=== PATIENT | male | born 1965 | race Caucasian/White ===

== ENCOUNTER 2023-07-21 12:51 | Emergency (ER) | payer BC, OTHER ==
--- NOTE | 2023-07-21 13:12 | ED Physician Documentation ---
PD HPI ABD PAIN - Stated complaint Stated Complaint: LT SIDE PX - Chief complaint Chief Complaint: Abd Pain - History obtained from History obtained from: Patient - History of Present Illness Timing - onset: How many hours ago (2), Today Timing - duration: Hours Timing - details: Abrupt onset (onset while at work but no injury associated with the onset of symptoms.), Still present Pain level max: 10 Pain level now: 10 Quality: Aching, Other Location: LLQ Radiation: Left flank Improved by: No: Vomiting, Position Worsened by: No: Moving, Breathing, Position Associated symptoms: Nausea, Vomiting. No: Fever, Diarrhea, Constipation, Dysuria, Chest pain Similar symptoms before: Has not had sx before Review of Systems Constitutional: denies: Fever, Chills Nose: denies: Rhinorrhea / runny nose, Congestion Throat: denies: Sore throat Respiratory: denies: Cough PD PAST MEDICAL HISTORY - Past Medical History Past Medical History: No Cardiovascular: Hypertension Respiratory: None Endocrine/Autoimmune: None GI: None - Past Surgical History Past Surgical History: Yes - Present Medications Home Medications: Ambulatory Orders Medication Instructions Recorded Confirmed Ibuprofen [Motrin] 600 mg PO TID PRN #25 tab 07/21/23 Ondansetron Odt [Zofran] 4 mg TL Q6H PRN #10 tablet 07/21/23 Oxycodone HCl/Acetaminophen 1 each PO Q4H PRN #20 tablet 07/21/23 [Percocet 5-325 mg Tablet] Tamsulosin [Flomax] 0.4 mg PO DAILY #5 cap 07/21/23 - Allergies Allergies/Adverse Reactions: Allergies Allergy/AdvReac Type Severity Reaction Status Date / Time bee venom protein (honey bee) Allergy Hives Verified 07/21/23 13:00 - Social History Does the pt smoke?: No Smoking Status: Never smoker Does the pt drink ETOH?: No Does the pt have substance abuse?: No - Immunizations Immunizations are current?: No - POLST Patient has POLST: No PD ED PE NORMAL - Vitals Vital signs reviewed: Yes - General General: Alert and oriented X 3, Well developed/nourished, Other (appears in severe pain but is calm and trying to do focused breathing. ) - Cardiac Cardiac: RRR, No murmur - Respiratory Respiratory: No respiratory distress, Clear bilaterally - Abdomen Abdomen: Normal bowel sounds, Soft, Non tender, Non distended - Derm Derm: Normal color, Warm and dry - Extremities Extremities: No edema, No calf tenderness / cord - Neuro Neuro: Alert and oriented X 3, No motor deficit, No sensory deficit, Normal speech Results - Vitals Vitals: Oxygen O2 Source Room air - Labs Labs: Laboratory Tests 07/21/23 07/21/23 07/21/23 13:06 13:06 15:50 WBC 7.6 RBC 5.25 Hgb 15.7 Hct 45.2 MCV 86.1 MCH 29.9 MCHC 34.7 RDW 11.7 L Plt Count 216 MPV 7.8 Neut # (Auto) 4.1 Lymph # (Auto) 2.8 [place] # (Auto) 0.5 Eos # (Auto) 0.2 Baso # (Auto) 0.0 Absolute Nucleated RBC 0.00 Nucleated RBC % 0.0 Sodium 138 Potassium 3.6 Chloride 100 L Carbon Dioxide 30 Anion Gap 8.0 BUN 19 Creatinine 1.1 Estimated GFR (MDRD) 69 L Glucose 116 H Calcium 9.8 Total Bilirubin 1.2 H AST 27 ALT 35 Alkaline Phosphatase 58 Total Protein 7.6 Albumin 4.8 Globulin 2.8 Albumin/Globulin Ratio 1.7 Lipase 28 Urine Color YELLOW Urine Clarity HAZY Urine pH 7.0 Ur Specific Hines 1.010 Urine Protein NEGATIVE Urine Glucose (UA) NEGATIVE Urine Ketones NEGATIVE Urine Occult Blood MODERATE H Urine Nitrite NEGATIVE Urine Bilirubin NEGATIVE Urine Urobilinogen 0.2 (NORMAL) Ur Leukocyte Esterase NEGATIVE Urine RBC 11-25 H Urine WBC 0-3 Ur Squamous Epith Cells RARE Squamous Urine Bacteria Few Ur Microscopic Review INDICATED Urine Culture Comments NOT INDICATED - Rads (name of study) abd/pelvic CT Relevant Findings:: Prelim report reviewed, EMP independent interpretation of test (3-4 mm stone proximal third left ureter with some mild hydronephrosis. No other stones noted in kidneys. Incidental GB stone without wall thickening nor distension. Aorta appears normal. ) PD Medical Decision Making - ED course Complexity details: re-evaluated patient (pain considerabley improved prior to CT and labs are without significant abnormalities, reviewed by me. UA with some blood but no infection. ), considered differential (acute onset left flank to abd pain with nausea. Severe pain. Not changed with movement. No injury. Consider kidney stone. No history of them. Also concern for vascular such as aortic in mid-aged male with HTN. I feel CT warranted and pt in agreement. Initial focus on pain meds though. ), d/w patient Reviewed Lab Results: CT abd/pelvis showing 3-4 mm stone proximal third of ureter with mild/mod hydronephrosis. No other acute process. gallstones without GB inflammation and he does not have pain in that area. Pt told of the presence of the gallstones as well as the pain-cuasing kidney stone. Departure - Departure Disposition: 01 Home, Self Care Clinical Impression: Abdominal pain, Acute flank pain, Ureterolithiasis Condition: Stable Record reviewed to determine appropriate education?: Yes Instructions: ED Stone Renal W Colic Prescriptions: Tamsulosin [Flomax] 0.4 mg PO DAILY #5 cap Ibuprofen [Motrin] 600 mg PO TID PRN #25 tab PRN Reason: Pain Oxycodone HCl/Acetaminophen [Percocet 5-325 mg Tablet] 1 each PO Q4H PRN #20 tablet PRN Reason: pain Ondansetron Odt [Zofran] 4 mg TL Q6H PRN #10 tablet PRN Reason: Nausea / Vomiting Comments: Your CT scan shows a 3 to 4 mm stone in the left ureter. This is what is causing your pain and also back pressure into the kidney to cause swelling there and pain in the back. The stone of this size should pass on its own over the short-term of within the next few days. Sometimes it does take longer. At this point would have you stay well-hydrated. There is no reason to over hydrate per se but just normal hydration. We typically treat with a combination of anti-inflammatories such as ibuprofen or naproxen regularly. I prescribed ibuprofen 600 mg to take 3 times daily with food for the next several days to week. Ondansetron/Zofran if needed for nausea. Tamsulosin is used over the next 3 to 5 days to help with ureteral spasms and promote passage of the stone. It also decreases spasm type pains even after the stone passes. It does not need to be taking longer term. To this add Tylenol 500 to 650 mg every 4-6 hours if needed for pain or the oxycodone/acetaminophen if needed for worse pain. The good majority of stones of this size will pass over the next 2 to 3 days or sooner. Follow-up with your primary care if not resolved completely over the next several days. Return to an ER if worsening symptoms despite the prescription medicines. You could get a referral to urologist from your primary care if the symptoms are controlled well enough but it does not seem to have passed over the next several days to week. I sent your prescriptions already to the [facility] in [place]. On your blood test your blood count white count are good. Your electrolytes are normal as is your kidney function. Your blood sugar was minimally elevated at 116 but being on fasting blood sugar is actually pretty good. I am prescribing a short course of narcotic pain medication for you. These are potentially dangerous and addictive medications that should be used carefully. These medications may constipate you. Take an [id number] stool softener such as docusate twice daily with plenty of water while taking these medications. If you go 24 hours without a bowel movement, take [id number] MiraLAX, per package instructions. Do not drink or drive while taking these medications. If you received narcotic or sedating medications while in the emergency department do not drive for 24 hours. Store this medication in a safe, secure place and out of reach of children. It is a violation of federal law to give or sell this medication to another person or to use in a manner other than prescribed. The ED will not refill narcotic prescriptions, including prescriptions lost or stolen. You can dispose of unwanted medications at the [facility]'s office or at several pharmacies such as [facility]. Forms: PCP List Discharge Date/Time: 07/21/23 15:50
[2023-07-21 13:16] LABS: BASOPHILS % (AUTO) 0.5 %; EOSINOPHILS # (AUTO) 0.2 10^3/uL (0.0-0.7); EOSINOPHILS % (AUTO) 2.3 %; HCT - HEMATOCRIT 45.2 % (42.0-52.0); HGB - HEMOGLOBIN 15.7 g/dL (14.0-18.0); LYMPHOCYTES # (AUTO) 2.8 10^3/uL (1.5-3.5); MEAN CORPUSCULAR HEMOGLOBIN 29.9 pg (27.0-31.0); MEAN CORPUSCULAR HGB CONC 34.7 g/dL (32.0-36.0); MEAN CORPUSCULAR VOLUME 86.1 fL (80.0-94.0); MEAN PLATELET VOLUME 7.8 fL (7.4-11.4); MONOCYTES # (AUTO) 0.5 10^3/uL (0.0-1.0); MONOCYTES % (AUTO) 6.5 %; NEUTROPHILS # (AUTO) 4.1 10^3/uL (1.5-6.6); NEUTROPHILS % (AUTO) 53.6 %; PLT - PLATELET COUNT 216 10^3/uL (130-450); RED BLOOD COUNT 5.25 10^6/uL (4.70-6.10); RED CELL DISTRIBUTION WIDTH 11.7 % (12.0-15.0); WHITE BLOOD COUNT 7.6 x10^3/uL (4.8-10.8)
[2023-07-21] MEDS ORDERED: KETOROLAC 15 MG/ML VIAL IVP STA (13:21)
[2023-07-21] MEDS ORDERED: HYDROmorphone 1 MG/ML CARPUJECT IVP STA ×2 (13:21→14:49)
[2023-07-21] MEDS ORDERED: SODIUM CHLORIDE 0.9% 1,000 ML IV STA (13:21)
[2023-07-21] MEDS ORDERED: ONDANSETRON 4 MG/2 ML VIAL IVP STA (13:21)
[2023-07-21 13:31] LABS: ALBUMIN 4.8 g/dL (3.2-5.5); ALBUMIN/GLOBULIN RATIO 1.7 (1.0-2.2); BILIRUBIN,TOTAL 1.2 mg/dL (0.2-1.0); CALCIUM 9.8 mg/dL (8.5-10.3); CREATININE 1.1 mg/dL (0.6-1.3); POTASSIUM 3.6 mmol/L (3.5-4.5); TOTAL PROTEIN 7.6 g/dL (6.4-8.9)
[2023-07-21] MEDS ORDERED: iohexoL-300 100 ML VIAL IVP ONE (14:43)
[2023-07-21] MEDS ORDERED: LIDOCAINE-MPF 2% 8 ML in SODIUM CHLORIDE 0.9% 50 ML IV STA (14:49)
--- NOTE | 2023-07-21 15:05 | CT Report ---
PROCEDURE: ABDOMEN/PELVIS W INDICATIONS: left flank pain abrupt today CONTRAST: 100ml omni 300 TECHNIQUE: After the administration of intravenous contrast, 5 mm thick sections acquired from the diaphragms to the symphysis. 5 mm thick coronal and sagittal reformats were acquired. For radiation dose reducti on, the following was used: automated exposure control, adjustment of mA and/or kV according to mahad ent size. COMPARISON: None FINDINGS: Image quality: Excellent. Lung bases and heart: Unremarkable. Liver: No solid mass. Gallbladder and biliary tree: Cholelithiasis without wall thickening. No biliary dilation. Spleen: No splenomegaly. Pancreas: No pancreatic ductal dilation. Adrenals: No adrenal nodule. Kidneys and ureters: Obstructing 3 mm stone in the proximal left ureter (series 2, image 59). Mildly delayed left-sided nephrogram. Minimal left-sided hydronephrosis. Bowel and peritoneum: No bowel distension. No pathologic free fluid. Lymph nodes: No central or retroperitoneal adenopathy. Vessels: No infrarenal aortic aneurysm. PELVIS Reproductive organs: Unremarkable. Bladder: No abnormal wall thickening, accounting for underdistension. Pelvic lymph nodes: No pelvic adenopathy by size criteria. Bones: No aggressive osseous abnormality. Other: Small left inguinal hernia containing fat. Trace right inguinal hernia containing fat. IMPRESSION: Obstructing 3 mm stone in the proximal left ureter, resulting in mildly delayed left-sided nephrogram and minimal hydronephrosis. Small left and trace right inguinal hernias containing fat. Reviewed by: Bentley Henry on 07/21/2023 2:03 PM [facility] Approved by: Bentley Henry on 07/21/2023 2:03 PM [facility] Station ID: [id number]
[2023-07-21 15:43] VITALS: BP 154/88; O2SAT 97
[2023-07-21 16:04] LABS: BILIRUBIN,URINE NEGATIVE (NEGATIVE); GLUCOSE, URINE (UA) NEGATIVE (NEGATIVE); KETONES,URINE (UA) NEGATIVE (NEGATIVE); LEUKOCYTE ESTERASE, URINE NEGATIVE (NEGATIVE); NITRITE,URINE NEGATIVE (NEGATIVE); OCCULT BLOOD,URINE MODERATE (NEGATIVE); PROTEIN,URINE NEGATIVE (NEGATIVE); UROBILINOGEN,URINE 0.2 (NORMAL) E.U./dL (NORMAL)
[2023-07-21 16:06] LABS: CLARITY,URINE HAZY (CLEAR)
[2023-07-21 16:12] LABS: BACTERIA,URINE Few /HPF (None Seen); SQUAMOUS EPITHELIAL CELL,UR RARE Squamous (<= Few); WBC,URINE 0-3 /HPF (0-3)
== END 2023-07-21 15:50 | disposition home or self-care (01) ==
LOC: ED 12:51
DX: N13.2 Hydronephrosis with renal and ureteral calculous obstruction (principal); I10 Essential (primary) hypertension
CPT/HCPCS: 36415; 74177; 80053; 81001; 83690; 85025; 96365; 96375; 96376; 99284; 99285; J1170; J7040; Q9967; 81003; 87086